=== PATIENT | male | born 1985 | race Caucasian/White ===

== ENCOUNTER 2021-08-19 13:29 | Emergency (ER) | payer OTHER ==
[~2021-08-19] VITALS: Ht 177.8 cm; Wt 113.4 kg
[2021-08-19 14:32] LABS: ABSOLUTE BASOPHILS 0.1 thou/uL (0.0-0.2); ABSOLUTE EOSINOPHILS 0.3 thou/uL (0.0-0.7); ABSOLUTE LYMPHOCYTES 1.7 thou/uL (0.8-5.3); ABSOLUTE MONOCYTES 0.4 thou/uL (0.0-1.2); ABSOLUTE NEUTROPHILS 3.1 thou/uL (1.6-8.1); EOSINOPHILS 5.6 %; HEMATOCRIT 46.8 % (42.0-52.0); HEMOGLOBIN 16.1 gm/dL (14.0-18.0); LYMPHOCYTES 30.7 %; MCH 30.2 pg (26.0-34.0); MCHC 34.4 g/dL (28.0-37.0); MONOCYTES 6.5 %; MPV 8.7 fl. (7.2-11.1); NUCLEATED RBCS 0 /100WBC; PLATELET COUNT* 254 thou/uL (150-400); POLYS 56.2 %; RBC 5.32 mil/uL (4.50-6.00); WBC 5.6 thou/uL (4.0-11.0)
[2021-08-19 14:38] LABS: CALCIUM 8.9 mg/dL (8.5-10.1); CREATININE 1.2 mg/dL (0.6-1.3); POTASSIUM 3.6 mmol/L (3.5-5.1)
[2021-08-19 14:43] LABS: ALBUMIN 4.1 g/dL (3.4-5.0); TOTAL BILIRUBIN 1.3 mg/dL (<0.1-1.0); TOTAL PROTEIN 7.8 g/dL (6.4-8.2)
[2021-08-19 14:43] LABS: URINE BILIRUBIN NEGATIVE (Negative); URINE BLOOD NEGATIVE (Negative); URINE CLARITY CLEAR; URINE COLOR YELLOW; URINE GLUCOSE-RANDOM NEGATIVE (Negative); URINE KETONES TRACE (Negative); URINE NITRITE-REFLEX NEGATIVE (Negative); URINE PROTEIN TRACE (Negative); URINE SPECIFIC GRAVITY 1.025 (1.005-1.030); URINE UROBILINOGEN 0.2 E.U./dl (0.2-1.0)
[2021-08-19 14:46] LABS: URINE LEUKOCYTES-REFLEX 2+ (Negative)
[2021-08-19 14:47] LABS: BACTERIA-REFLEX 1-9 Few /HPF (None Seen); CASTS None Seen /LPF (None Seen); CRYSTALS None Seen /LPF (None Seen); SQUAMOUS 0-3 Few /LPF (0-3); URINE RBC 0-2 Rare /HPF (0-2)
[2021-08-19] MEDS ORDERED: DOXYCYCLINE 10100 MG PO (15:24)
[2021-08-19] MEDS ORDERED: SUPRAX400 M1 PO (15:24)
[2021-08-19 15:46] LABS: INFLUENZA A ANTIGEN Negative (Negative); INFLUENZA B ANTIGEN Negative (Negative)
[2021-08-19 16:43] VITALS: BP 144/99
--- NOTE | 2021-08-20 10:02 | EKG ---
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 : 1985 Requested By: Patricia Rodriguez Order Number: [id number] MD: Rk Valdes Measurements Intervals [place] Rate: 79 P: 46 ND: 141 QRS: 27 QRSD: 102 T: -43 QT: 368 QTc: 422 Interpretive Statements Sinus rhythm RSR' in V1 or V2, right VCD Nonspecific T abnormalities, lateral leads No previous ECG available for comparison Electronically Signed On 08-19-2021 14:15:50 [employer] by Rk Valdes [email or web address] <ELECTRONICALLY SIGNED> By: Rk Valdes MD, FAC 08/19/21 1415 141 1411 Rk Valdes MD, [facility] /EPI
== END 2021-08-19 16:43 | disposition home or self-care (01) ==
LOC: M.ERS 13:29
PROVIDERS: Nurse Practitioner Family
DX: N39.0 Urinary tract infection, site not specified (principal); Z20.822 Contact with and (suspected) exposure to COVID-19; J06.9 Acute upper respiratory infection, unspecified; R53.1 Weakness; R19.7 Diarrhea, unspecified; R63.0 Anorexia; E66.9 Obesity, unspecified; Z68.35 Body mass index [BMI] 35.0-35.9, adult